=== PATIENT | female | born 1965 | race Caucasian/White ===

== ENCOUNTER → 2018-12-27 | Outpatient (CLI) | payer BC ==
[~2018-12-27] MED LIST: ALBUTEROL SULFATE 0.083% 2.5 MG/3 ML INH IH ONE
== END | disposition home or self-care (01) ==
LOC: RESP 13:16
PROVIDERS: ATTEND Internal Medicine Cardiovascular Disease
DX: J44.9 Chronic obstructive pulmonary disease, unspecified (principal); Z87.891 Personal history of nicotine dependence
CPT/HCPCS: 94060; 94727; 94729

== ENCOUNTER → 2019-05-22 | Outpatient (CLI) | payer OTHER | END | disposition home or self-care (01) | LOC: RAH 15:04 | PROVIDERS: ATTEND Internal Medicine Cardiovascular Disease | DX: Z13.6 Encounter for screening for cardiovascular disorders (principal) | CPT/HCPCS: 75571 ==

== ENCOUNTER → 2020-02-29 | Outpatient (CLI) | payer BC | END | disposition home or self-care (01) | LOC: LAB 16:51 | PROVIDERS: ATTEND Internal Medicine Gastroenterology | DX: N28.89 Other specified disorders of kidney and ureter (principal) | CPT/HCPCS: 36415; 82565; 84520 ==

== ENCOUNTER → 2020-03-04 | Outpatient (CLI) | payer BC ==
[~2020-03-04] MED LIST changes: -ALBUTEROL SULFATE 0.083% 2.5 MG/3 ML INH IH ONE; +IOHEXOL 350 MG/ML 100ML INFUS..BTL IV ONE
== END | disposition home or self-care (01) ==
LOC: OIH 07:59
PROVIDERS: ATTEND Internal Medicine
DX: N28.89 Other specified disorders of kidney and ureter (principal)
CPT/HCPCS: 74170; Q9967

== ENCOUNTER 2024-09-19 23:31 | Emergency (ER) | payer BC ==
[~2024-09-19] VITALS: Ht 182.9 cm; Wt 106.6 kg
[2024-09-19 23:56] LABS: BASOPHILS # (AUTO) 0.02 K/uL (0.00-0.20); BASOPHILS % (AUTO) 0.4 % (0.0-5.0); EOSINOPHILS % (AUTO) 1.8 % (0.0-8.0); HEMATOCRIT 39.3 % (36-48); IMMATURE GRANULOCYTE ABSOLUTE 0.01 K/uL (0-1); LYMPHOCYTES # (AUTO) 2.5 K/uL (1.0-4.8); LYMPHOCYTES % (AUTO) 45.4 % (21.0-51.0); MEAN CORPUSCULAR HEMOGLOBIN 28.8 pg (27.0-33.0); MEAN CORPUSCULAR HGB CONC 31.6 g/dL (32.0-36.0); MEAN CORPUSCULAR VOLUME 91.2 fL (79-99); MONOCYTES # (AUTO) 0.5 K/uL (0.1-1.0); MONOCYTES % (AUTO) 9.7 % (3.0-13.0); NEUTROPHILS # (AUTO) 2.4 K/uL (1.8-7.7); NEUTROPHILS % (AUTO) 42.5 % (40.0-77.0); PLATELET COUNT (AUTO) 299 K/uL (130-400); RED BLOOD CELL COUNT(AUTO) 4.31 MIL/uL (4.00-5.50); RED CELL DISTRIBUTION WIDTH 13.6 % (11.0-15.5); WHITE BLOOD COUNT (AUTO) 5.6 K/uL (4.8-10.8)
--- NOTE | 2024-09-20 00:01 | ERN ---
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 She has had these off and on through the years and they always resolve spontaneously. Many times they resolve before she can even get to the ED and obtain an EKG reading. She has seen Dr. Ngerete, a extension agent here, and wore a Holter monitor numerous times to capture the rhythm but all of the rhythm strips showed normal sinus rhythm. And while I was talking to the patient just now she returned to normal sinus rhythm. We do have one EKG that shows atrial fibrillation. Timing/Duration: 1-3 hours Severity: mild Allergies: Coded Allergies: No Known Drug Allergies (Unverified Allergy, Unknown, 09/19/24) Past Medical History Past Medical History: Diabetes-Type II Medical History Other: Intermittent atrial fibrillation Past Surgical History: Unknown Constitutional: (-) chills, (-) diaphoresis, (-) fever, (-) malaise, (-) weakn ess, (-) other documentation EENTM: (-) eye pain, (-) blurred vision, (-) tearing, (-) double vision, (-) ear pain, (-) ear discharge, (-) nose pain, (-) nose congestion, (-) throat pain, (-) Throat swelling, (-) mouth pain, (-) tooth pain, (-) mouth swelling, (-) other documentation Respiratory: (-) cough, (-) orthopnea, (-) short of breath, (-) stridor, (-) wheezing, (-) other documentation Cardiovascular: (-) chest pain, (-) edema, (-) palpitations, (-) syncope, (-) dyspnea on exertion, (-) other documentation Gastrointestinal/Abdominal: (-) nausea, (-) vomiting, (-) diarrhea, (-) abdominal pain, (-) abdominal distention, (-) constipation, (-) rectal bleeding, (-) dark stool/melena, (-) other documentation Genitourinary: (-) vaginal discharge, (-) vaginal bleeding, (-) dysuria, (-) frequency, (-) hematuria, (-) pain, (-) other documentation Musculoskeletal: (-) Neck pain, (-) back pain, (-) Flank Pain, (-) joint pain, (-) joint swelling, (-) muscle pain, (-) muscle stiffness, (-) gout, (-) other documentation Physical Exam General Appearance: (+) no apparent distress Orientation: (+) oriented x 3 Head/Face Trauma: No Eye: bilateral eye normal inspection, bilateral eye PERRL, bilateral eye EOMI Ear, Nose, Throat: (+) hearing grossly normal, (+) normal ENT inspection Neck: (+) normal inspection, (+) supple Respiratory: (+) chest non-tender, (+) lungs clear Heart: (+) regular Vascular: (+) no edema, (+) no JVD Results Laboratory and Microbiology Lab and Micro Result Laboratory Tests Test 09/19/24 23:44 09/20/24 00:27 White Blood Count 5.6 K/uL (4.8-10.8) Red Blood Count 4.31 MIL/uL (4.00-5.50) Hemoglobin 12.4 g/dL (12.0-16.0) Hematocrit 39.3 % (36-48) Mean Corpuscular Volume 91.2 fL (79-99) Mean Corpuscular Hemoglobin 28.8 pg (27.0-33.0) Mean Corpuscular Hemoglobin Concent 31.6 g/dL (32.0-36.0) L Red Cell Distribution Width 13.6 % (11.0-15.5) Platelet Count 299 K/uL (130-400) Mean Platelet Volume 9.3 fL (7.5-10.5) Immature Granulocyte % (Auto) 0.2 % (0-1) Neutrophils (%) (Auto) 42.5 % (40.0-77.0) Lymphocytes (%) (Auto) 45.4 % (21.0-51.0) Monocytes (%) (Auto) 9.7 % (3.0-13.0) Eosinophils (%) (Auto) 1.8 % (0.0-8.0) Basophils (%) (Auto) 0.4 % (0.0-5.0) Neutrophils # (Auto) 2.4 K/uL (1.8-7.7) Lymphocytes # (Auto) 2.5 K/uL (1.0-4.8) Monocytes # (Auto) 0.5 K/uL (0.1-1.0) Eosinophils # (Auto) 0.10 K/uL (0.00-0.70) Basophils # (Auto) 0.02 K/uL (0.00-0.20) Absolute Immature Granulocyte (auto 0.01 K/uL (0-1) Nucleated Red Blood Cells 0.0 % (0.0-0.19) Sodium Level 140 mmol/L (136-145) Potassium Level 3.6 mmol/L (3.5-5.1) Chloride Level 103 mmol/L (101-111) Carbon Dioxide Level 29 mmol/L (21-32) Blood Urea Nitrogen 19 mg/dL (7-18) H Creatinine 0.9 mg/dL (0.5-1.0) Glomerular Filtration Rate Calc 74 mL/min (>90) Random Glucose 158 mg/dL (70-105) H Total Calcium 9.4 mg/dL (8.5-10.1) Total Creatine Kinase 169 U/L (21-232) Troponin I High Sensitivity 7 ng/L (4-50) B-Type Natriuretic Peptide 69 pg/mL (0-100) Urine Color LIGHT-YELLOW (YELLOW) Urine Appearance CLEAR (CLEAR) Urine pH 6.0 (5.0-8.0) Urine Specific [place] 1.019 (1.001-1.031) Urine Protein NEGATIVE mg/dL (NEGATIVE) Urine Glucose (UA) NEGATIVE mg/dL (NEGATIVE) Urine Ketones NEGATIVE mg/dL (NEGATIVE) Urine Occult Blood NEGATIVE (NEGATIVE) Urine Nitrate NEGATIVE (NEGATIVE) Urine Bilirubin NEGATIVE mg/dL (NEGATIVE) Urine Urobilinogen 0.2 mg/dL (0.2-1.0) Urine Leukocyte Esterase 250 Rafael/uL (NEGATIVE) H Urine RBC 2-5 /HPF (0-1) H Urine WBC 2-5 /HPF (0-1) H Urine Squamous Epithelial Cells RARE /HPF (0-2) Urine Bacteria RARE /HPF (None Seen) Urine Hyaline Casts 2-5 /LPF (0-1 /LPF) H MDM I will get a repeat EKG, we will also get a UA as patient states whenever she has atrial fibrillation she needs to urinate. Also BNP troponin chemistry panel. His chest x-ray is negative, BNP is negative, troponin is negative. WBCs are no rmal. Urine shows a large esterase activity. I will discharge the patient on some p.o. antibiotics. Magnesium level still pending. ED Course Orders Procedure Category Date Status Time Vital Signs Per CPOE 09/19/24 Transmitted Routine 23:40 B-Type Natriuretic LAB 09/19/24 Complete Peptide 23:40 Chest 1vw RAD 09/19/24 Resulted 23:40 12 Lead Ekg Tracing- EKG 09/19/24 Logged Technical 23:40 Oxygen By Nc/Pulse Ox CPOE 09/19/24 Transmitted 23:40 Maintain Iv CPOE 09/19/24 Transmitted 23:40 Iv Insertion CPOE 09/19/24 Transmitted 23:40 Cardiac Monitoring CPOE 09/19/24 Transmitted 23:40 Pulse Oximetry With CPOE 09/19/24 Transmitted Vs And Prn 23:40 Cbc With Differential LAB 09/19/24 Complete 23:40 Activity: Br W/Brp CPOE 09/19/24 Transmitted With Assist 23:40 Creatine Kinase, Total LAB 09/19/24 Complete 23:40 Troponin I High LAB 09/19/24 Complete Sensitivity 23:40 Urinalysis Profile LAB 09/19/24 Complete 23:40 Basic Metabolic Panel LAB 09/19/24 Complete 23:40 12 Lead Ekg Tracing- EKG 09/19/24 Logged Technical 23:41 Magnesium LAB 09/20/24 Logged 00:24 Culture Urine BARBARA 09/20/24 In Process 00:39 Vital Signs Date Time Temp Pulse Resp B/P (MAP) Pulse Ox O2 Delivery O2 Flow Rate FiO2 09/20/24 01:04 99.0 88 20 125/84 95 Room Air* 0 21 09/19/24 23:47 99.0 128 20 136/86 95 Room Air* 0 21 09/19/24 23:37 98.4 92 20 122/72 97 Room Air DX & DISP Disposition: Discharge Departure Impression: Primary Impression: Atrial fib/flutter, transient Additional Impression: UTI (urinary tract infection) Condition: Stable Scripts Sulfamethoxazole/Trimethoprim (Bactrim Ds Tablet) 800 Mg-160 Mg Tablet 1 TAB PO BID for 3 Days, #6 TAB 0 Refills Prov: SHAUNNA REIS MD 09/20/24 Additional Instructions: Return to ED if symptoms of palpitation or urinary tract infection worsen. Referrals: DEIRDRE MUNIZ MD (PCP) SHAUNNA REIS MD Sep 20, 2024 00:01
[2024-09-20 00:06] LABS: CREATININE 0.9 mg/dL (0.5-1.0); POTASSIUM 3.6 mmol/L (3.5-5.1)
[2024-09-20 00:27] LABS: B-TYPE NATRIURETIC PEPTIDE 69 pg/mL (0-100)
[2024-09-20 00:37] LABS: APPEARANCE,URINE CLEAR (CLEAR); BILIRUBIN,URINE NEGATIVE (NEGATIVE); COLOR,URINE LIGHT-YELLOW (YELLOW); GLUCOSE, URINE (UA) NEGATIVE (NEGATIVE); KETONES,URINE NEGATIVE (NEGATIVE); LEUKOCYTE ESTERASE ,URINE 250 Leu/uL (NEGATIVE); NITRATE,URINE NEGATIVE (NEGATIVE); OCCULT BLOOD,URINE NEGATIVE (NEGATIVE); PROTEIN,URINE NEGATIVE (NEGATIVE); UROBILINOGEN,URINE 0.2 mg/dL (0.2-1.0)
[2024-09-20 00:39] LABS: ADD UA MICROSCOPIC YES
[2024-09-20 00:42] LABS: BACTERIA,URINE RARE /HPF (None Seen); MUCUS,URINE RARE LPF (None Seen); SQUAMOUS EPITHELIAL CELL,UR RARE /HPF (0-2)
--- NOTE | 2024-09-20 00:50 | HMCIMG ---
CHEST 1VW HISTORY: Chest pain COMPARISON: 12/27/2018 FINDINGS: A frontal projection of the chest was obtained. No acute pulmonary infiltrates is seen. The heart is borderline enlarged. Degenerative changes are seen. Prominent interstitial markings are seen. No evidence of aortic calcification is seen. IMPRESSION: 1. No acute pulmonary infiltrate is seen.
[2024-09-20 01:04] VITALS: BP 125/84; PULSE 88; RESP 20; TEMP 98.9; O2SAT 95
[2024-09-20] MEDS ORDERED: SULF1TAB42 PO (01:11)
--- NOTE | 2024-09-20 06:36 | EKG ---
[facility] Test Date: 2024-09-19 Test Time: 23:41:44 Pat Name: CORNELIO MACIAS Department: ED Room: Gender: F Acquisition Consultant: 08 : 1965 Requested By: SHAUNNA REIS Order Number: [id number] Reading MD: Shaunna Gagnon Measurements Intervals [place] Rate: 137 P: 0 IA: 0 QRS: 52 QRSD: 140 T: -6 QT: 345 QTc: 521 Interpretive Statements Atrial fibrillation with rapid ventricular response Right bundle branch block No previous ECG available for comparison Electronically Signed On 09-21-2024 10:56:18 CDT by Shaunna Gagnon Please click the below link to view image of tracing.
== END 2024-09-20 01:18 | disposition home or self-care (01) ==
LOC: EDH 23:31
DX: I48.92 Unspecified atrial flutter (principal); I48.91 Unspecified atrial fibrillation; N39.0 Urinary tract infection, site not specified
CPT/HCPCS: 36415; 71045; 80048; 81001; 82550; 83735; 83880; 84484; 85025; 87086; 93005; 99284